=== PATIENT | male | born 2000 ===

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

== ENCOUNTER 2021-03-17 23:55 | Emergency (ER) | payer SELFPAY | END 2021-03-18 02:08 | LOC: ERS 23:55 | DX: S02.2XXA Fracture of nasal bones, initial encounter for closed fracture (principal); S60.222A Contusion of left hand, initial encounter; Y04.8XXA Assault by other bodily force, initial encounter; F17.210 Nicotine dependence, cigarettes, uncomplicated | CPT/HCPCS: 70450; 70486 ==